=== PATIENT | female | born 1965 | race Caucasian/White ===

== ENCOUNTER 2016-10-16 11:19 | Emergency (ER) | payer OTHER ==
[~2016-10-16] VITALS: Ht 162.6 cm; Wt 79.0 kg
[~2016-10-16 11:19] MED LIST: LORA-441 PO; [UNRECOGNIZED DRUG - CODE] MC
[2016-10-16 11:47] VITALS: Ht 162.6 cm; Wt 79.0 kg
[2016-10-16 14:18] LABS: URINE BLOOD (Dip) POC 2+ (NEGATIVE)
[2016-10-16] MEDS ORDERED: FLUC150T41 PO (14:20)
[2016-10-16] MEDS ORDERED: CEPH-443 PO (14:20)
--- NOTE | 2016-10-16 14:24 | ERD ---
ER Documentation Chief Complaint Date/Time DATE: 10/16/16 TIME: 14:23 Chief Complaint PAINFUL URINATION,VAGINAL ITCHING HPI This 51-year-old female presents with dysuria for last week. She took some of her friends antibiotics by history and felt better but there symptoms have returned. She denies any fevers, vomiting, flank pain, abdominal pain. She also has some vaginal itching without discharge. ROS All systems reviewed and are negative except as per history of present illness. Medications Home Meds Active Scripts Fluconazole* (Fluconazole*) 150 Mg Tablet, 150 MG PO DAILY, #1 TAB Prov:AUNDREA VAUGHN MD 10/16/16 Cephalexin* (Keflex*) 500 Mg Capsule, 500 MG PO QID for 5 Days, CAP Prov:AUNDREA VAUGHN MD 10/16/16 Blood Sugar Diagnostic (ONE TOUCH VERIO) 1 Each Strip, 1 EACH MC DAILY, #30 STRIP Prov:BOYD HADLEY. GERIATRIC NURSE PRACTITIONER 05/31/15 Lorazepam* (Ativan*) 0.5 Mg Tablet, 0.5 MG PO Q8H Y for ANXIETY, #10 TAB Prov:BOYD HADLEY. GERIATRIC NURSE PRACTITIONER 05/31/15 Allergies Allergies: Coded Allergies: No Known Allergy (Unverified , 05/31/15) PMhx/Soc Medical and Surgical Hx: pt denies Surgical Hx History of Surgery: No Anesthesia Reaction: No Hx Neurological Disorder: No Hx Respiratory Disorders: No Hx Cardiac Disorders: No Hx Psychiatric Problems: No Hx Miscellaneous Medical Probl: Yes (DM, HTN, HIGH CHOLESTEROL) Hx Alcohol Use: No Hx Substance Use: No Hx Tobacco Use: No Smoking Status: Never smoker Physical Exam Vitals Vital Signs Date Time Temp Pulse Resp B/P Pulse Ox O2 Delivery O2 Flow Rate FiO2 10/16/16 11:47 97.5 98 18 165/94 98 Physical Exam Const: [] Alert, [id number]. Head: Atraumatic Eyes: Normal Conjunctiva ENT: Normal External Ears, Nose and Mouth. Neck: Full range of motion..~ No meningismus. Resp: Clear to auscultation bilaterally Cardio: Regular rate and rhythm, no murmurs Abd: Soft, non tender, non distended. Normal bowel sounds Skin: No petechiae or rashes Back: No midline or flank tenderness Ext: No cyanosis, or edema Neur: Awake and alert Psych: Normal Mood and Affect Results 24 hrs Laboratory Tests Test 10/16/16 14:17 Bedside Urine pH (LAB) 6.5 Bedside Urine Protein (LAB) Trace Bedside Urine Glucose (UA) Negative Bedside Urine Ketones (LAB) Negative Bedside Urine Blood 2+ Bedside Urine Nitrite (LAB) Positive Bedside Urine Leukocyte Esterase (L 1+ Current Medications Medications (Trade) Dose Ordered Sig/Michel Route PRN Reason Start Time Stop Time Status Last Admin Dose Admin Cephalexin (Keflex) 500 mg ONCE ONCE PO 10/16/16 14:30 10/16/16 14:31 Procedures/MDM Urine shows positive leukocytes, nitrites and hemoglobin. HCG is negative. Patient has signs and symptoms of cystitis without evidence of pyelonephritis, sepsis, signs of abdominal pain or acute abdomen. She may have vaginitis as well will be treated with Diflucan as well as Keflex given history of diabetes. Patient is advised to return for fevers, vomiting, new worsening symptoms with primary care doctor. The patient was stable with no new complaints during the ER course. Clinically, there is no current evidence to suggest meningitis, sepsis, acute abdomen, pneumonia, acute coronary syndrome, pulmonary embolism, or any other emergent condition appearing to require further evaluation or hospitalization. The patient should certainly return for any new or worsening symptoms per the aftercare instructions. They should otherwise follow-up with her primary care doctor for reevaluation this week. Departure Diagnosis: Primary Impression: Hypertension Hypertension type: essential hypertension Qualified Code: I10 - Essential hypertension Additional Impression: UTI (urinary tract infection) Urinary tract infection type: acute cystitis Hematuria presence: without hematuria Qualified Code: N30.00 - Acute cystitis without hematuria Condition: Stable Patient Instructions: Urinary Tract Infections in Women, High Blood Pressure ( Hypertension) Additional Instructions: Cheque otro vez con augustine doctor primario en el proximo camejo or regresa para mas o nueva simptomas. AUNDREA VAUGHN MD Oct 16, 2016 14:24
[2016-10-16] MEDS ORDERED: CEPHALEXIN 500 MG CAP PO ONE (14:30)
== END 2016-10-16 14:34 | disposition home or self-care (01) ==
LOC: FTE 11:19
DX: I10 Essential (primary) hypertension (principal); N30.00 Acute cystitis without hematuria; E11.9 Type 2 diabetes mellitus without complications
CPT/HCPCS: 81003; Z7502; Z7610; 99284

== ENCOUNTER 2016-12-27 10:08 | Emergency (ER) | payer OTHER ==
[~2016-12-27] VITALS: Ht 162.6 cm; Wt 81.5 kg
[~2016-12-27 10:08] MED LIST changes: +CEPH-443 PO; +FLUC150T41 PO
[2016-12-27 10:24] VITALS: Ht 162.6 cm; Wt 81.5 kg
[2016-12-27 11:54] LABS: ADD UMIC YES; URINE BILIRUBIN (Dip) NEGATIVE (NEGATIVE); URINE BLOOD (Dip) 3+ (NEGATIVE); URINE COLOR LT. YELLOW (YELLOW); URINE GLUCOSE (Dip) NEGATIVE (NEGATIVE); URINE KETONES (Dip) NEGATIVE (NEGATIVE); URINE LEUKOCYTE ESTERASE (Dip) 2+ (NEGATIVE); URINE NITRITE (Dip) POSITIVE (NEGATIVE); URINE TOTAL PROTEIN (Dip) NEGATIVE (NEGATIVE); URINE UROBILINOGEN (Dip) 0.2 E.U./dL (0.1-1.0)
[2016-12-27] MEDS ORDERED: PHEN-538 PO (12:23)
[2016-12-27] MEDS ORDERED: CEPH-443 PO (12:23)
--- NOTE | 2016-12-27 12:25 | ERD ---
ER Documentation Chief Complaint Date/Time DATE: 12/27/16 TIME: 12:24 Chief Complaint DYSURIA URGENCY FEELING HPI This 51-year-old female complains of dysuria for 1 day. She denies fevers, vomiting, shortness of the chest pain. She has a history of UTI last approximately 3 months ago and feels similar ROS All systems reviewed and are negative except as per history of present illness. Medications Home Meds Active Scripts Phenazopyridine Hcl* (Pyridium*) 200 Mg Tab, 200 MG PO TID Y for URINARY PAIN, # 6 TAB Prov:AUNDREA VAUGHN MD 12/27/16 Cephalexin* (Keflex*) 500 Mg Capsule, 500 MG PO QID for 5 Days, CAP Prov:AUNDREA VAUGHN MD 12/27/16 Fluconazole* (Fluconazole*) 150 Mg Tablet, 150 MG PO DAILY, #1 TAB Prov:AUNDREA VAUGHN MD 10/16/16 Cephalexin* (Keflex*) 500 Mg Capsule, 500 MG PO QID for 5 Days, CAP Prov:AUNDREA VAUGHN MD 10/16/16 Blood Sugar Diagnostic (ONE TOUCH VERIO) 1 Each Strip, 1 EACH MC DAILY, #30 STRIP Prov:BOYD HADLEY. GARDEN CENTER MANAGER 05/31/15 Lorazepam* (Ativan*) 0.5 Mg Tablet, 0.5 MG PO Q8H Y for ANXIETY, #10 TAB Prov:BOYD HADLEY. SABINO 05/31/15 Allergies Allergies: Coded Allergies: No Known Allergy (Unverified , 12/27/16) PMhx/Soc History of Surgery: No Anesthesia Reaction: No Hx Neurological Disorder: No Hx Respiratory Disorders: No Hx Cardiac Disorders: No Hx Psychiatric Problems: No Hx Miscellaneous Medical Probl: Yes (DM, HTN, HIGH CHOLESTEROL) Hx Alcohol Use: No Hx Substance Use: No Hx Tobacco Use: No Smoking Status: Never smoker Physical Exam Vitals Vital Signs Date Time Temp Pulse Resp B/P Pulse Ox O2 Delivery O2 Flow Rate FiO2 12/27/16 10:24 98.5 118 18 162/93 97 Physical Exam Const: [] Alert, [id number] Head: Atraumatic Eyes: Normal Conjunctiva ENT: Normal External Ears, Nose and Mouth. Neck: Full range of motion..~ No meningismus. Resp: Clear to auscultation bilaterally Cardio: Regular rate and rhythm, no murmurs Abd: Soft, non tender, non distended. Normal bowel sounds Skin: No petechiae or rashes Back: No midline or flank tenderness Ext: No cyanosis, or edema Neur: Awake and alert Psych: Normal Mood and Affect Results 24 hrs Laboratory Tests Test 12/27/16 11:35 Urine Color LT. YELLOW Urine Clarity CLEAR Urine pH 6.0 Urine Specific Marcell <=1.005 Urine Ketones NEGATIVE Urine Nitrite POSITIVE Urine Bilirubin NEGATIVE Urine Urobilinogen 0.2 E.U./dL Urine Leukocyte Esterase 2+ Urine Microscopic RBC 10-25/HPF Urine Microscopic WBC 25-50/HPF Urine Epithelial Cells FEW Urine Hemoglobin 3+ Urine Glucose NEGATIVE% Urine Total Protein NEGATIVE Current Medications Medications (Trade) Dose Ordered Sig/Michel Route PRN Reason Start Time Stop Time Status Last Admin Dose Admin Cephalexin (Keflex) 500 mg ONCE ONCE PO 12/27/16 12:30 12/27/16 12:31 12/27/16 12:19 Phenazopyridine HCl (Pyridium) 200 mg ONCE ONCE PO 12/27/16 12:30 12/27/16 12:31 12/27/16 12:19 Procedures/MDM And shows positive leukocytes and hemoglobin without glucose, nitrates. Patient was given Keflex and Pyridium here in the ED and will be treated with Keflex, Pyridium instructions for clear fluids at home. Patient should recheck fevers, vomiting, new worsening symptoms. The patient was stable with no new complaints during the ER course. Clinically, there is no current evidence to suggest meningitis, sepsis, acute abdomen, pneumonia, acute coronary syndrome, pulmonary embolism, or any other emergent condition appearing to require further evaluation or hospitalization. The patient should certainly return for any new or worsening symptoms per the aftercare instructions. They should otherwise follow-up with her primary care doctor for reevaluation this week. Departure Diagnosis: Primary Impression: Dysuria Condition: Stable Patient Instructions: Understanding Urinary Tract Infections (UTIs) Additional Instructions: Cheque otro vez con augustine doctor primario en el proximo camejo or regresa para mas o nueva simptomas. AUNDREA VAUGHN MD Dec 27, 2016 12:25
[2016-12-27 12:29] VITALS: BP 156/88; PULSE 69; RESP 18; TEMP 97.8
[2016-12-27] MEDS ORDERED: PHENAZOPYRIDINE 100 MG TAB PO ONE (12:30)
[2016-12-27] MEDS ORDERED: CEPHALEXIN 500 MG CAP PO ONE (12:30)
== END 2016-12-27 12:30 | disposition home or self-care (01) ==
LOC: FTE 10:08
DX: R30.0 Dysuria (principal); I10 Essential (primary) hypertension; E11.9 Type 2 diabetes mellitus without complications
CPT/HCPCS: 81001; Z7502; Z7610; 99283

== ENCOUNTER 2017-03-02 03:15 | Emergency (ER) | payer OTHER ==
[~2017-03-02] VITALS: Ht 165.1 cm; Wt 79.0 kg
[~2017-03-02 03:15] MED LIST changes: +PHEN-538 PO
[2017-03-02 03:20] VITALS: Ht 165.1 cm; Wt 79.0 kg
[2017-03-02] MEDS ORDERED: LORA-441 PO (03:42)
--- NOTE | 2017-03-02 03:59 | ERD ---
ER Documentation Chief Complaint Date/Time DATE: 03/02/17 TIME: 03:51 Chief Complaint anxiety, palpitations x 2 weeks d/t stress. Pt took Klonopin BIOLOGY DEPARTMENT CHAIR HPI 52-year-old female presents here in emergency department for complaints of being stressed and anxious, feeling palpitations for the last 2 weeks, patient states that she's been crying a lot, patient's states been going through a lot of stress lately, patient is a 0 anxiety, to Klonopin prior to coming here in emergency department, patient states that it has not been helping, patient was given lorazepam before and it does help before. Patient denies any chest pain. Patient denies any dizziness. Patient denies any dyspnea on exertion or dyspnea on lying down. Patient denies homicidal or suicidal ideations. ROS All systems reviewed and are negative except as per history of present illness. Medications Home Meds Active Scripts Lorazepam* (Ativan*) 0.5 Mg Tablet, 0.5 MG PO Q8H Y for ANXIETY, #10 TAB Prov:SWETA ARREDONDO NP 03/02/17 Phenazopyridine Hcl* (Pyridium*) 200 Mg Tab, 200 MG PO TID Y for URINARY PAIN, # 6 TAB Prov:AUNDREA VAUGHN MD 12/27/16 Cephalexin* (Keflex*) 500 Mg Capsule, 500 MG PO QID for 5 Days, CAP Prov:AUNDREA VAUGHN MD 12/27/16 Fluconazole* (Fluconazole*) 150 Mg Tablet, 150 MG PO DAILY, #1 TAB Prov:AUNDREA VAUGHN MD 10/16/16 Cephalexin* (Keflex*) 500 Mg Capsule, 500 MG PO QID for 5 Days, CAP Prov:AUNDREA VAUGHN MD 10/16/16 Blood Sugar Diagnostic (ONE TOUCH VERIO) 1 Each Strip, 1 EACH MC DAILY, #30 STRIP Prov:BOYD HADLEY NP 05/31/15 Allergies Allergies: Coded Allergies: No Known Allergy (Unverified , 03/02/17) PMhx/Soc Medical and Surgical Hx: pt denies Medical Hx, pt denies Surgical Hx History of Surgery: No Anesthesia Reaction: No Hx Neurological Disorder: No Hx Respiratory Disorders: No Hx Cardiac Disorders: No Hx Psychiatric Problems: No Hx Miscellaneous Medical Probl: Yes (DM, HTN, HIGH CHOLESTEROL) Hx Alcohol Use: No Hx Substance Use: No Hx Tobacco Use: No FmHx Family History: No coronary disease, No diabetes, No other Physical Exam Vitals Vital Signs Date Time Temp Pulse Resp B/P Pulse Ox O2 Delivery O2 Flow Rate FiO2 03/02/17 03:20 98.5 96 18 174/91 98 Physical Exam GENERAL: The patient is well developed and appropriate for usual state of health, in no apparent distress. CHEST: Clear to auscultation bilaterally. There are no rales, wheezes or rhonchi. HEART: Regular rate and rhythm. No murmurs, clicks, rubs or gallops. No S3 or S4. ABDOMEN: Soft, nontender and nondistended. Good bowel sounds. No rebound or guarding. No gross peritonitis. No gross organomegaly or masses. No Boss sign or McBurney point tenderness. BACK: No midline or flank tenderness. EXTREMITIES: Equal pulses bilaterally. There is no peripheral clubbing, cyanosis or edema. No focal swelling or erythema. Full range of motion. Grossly neurovascularly intact. NEURO: Alert and oriented. Cranial nerves 2-12 intact. Motor strength in all 4 extremities with 5/5 strength. Sensation grossly intact. Normal speech and gait. SKIN: There is no apparent rash or petechia. The skin is warm and dry. HEMATOLOGIC AND LYMPHATIC: There is no evidence of excessive bruising or lymphedema. No gross cervical, axillary, or inguinal lymphadenopathy. PSYCHIATRIC: Patient denies any homicidal or suicidal ideations, patient is teary eyed and crying. Results 24 hrs Current Medications Medications (Trade) Dose Ordered Sig/Michel Route PRN Reason Start Time Stop Time Status Last Admin Dose Admin Lorazepam (Ativan) 2 mg ONCE ONCE PO 03/02/17 04:00 03/02/17 04:01 03/02/17 03:46 Ativan was given here in emergency department, verbalized much better afterwards. Procedures/MDM Medical decision making: Patient's symptoms likely is consistent with an anxiety attack. No signs of any homicidal or suicidal ideations, no symptoms of any psychiatric emergencies at this time. Patient was given Ativan here in emergency department, was given a few pills of Ativan to go home with and was advised to psychiatric lpn for further evaluation of symptoms. Patient was advised to return to emergency department for any worsening symptoms. Disposition: Home. Stable. Departure Diagnosis: Primary Impression: Anxiety Condition: Stable Patient Instructions: Anxiety Reaction Referrals: RAYMOND PEÑA MD (PCP) SWETA ARREDONDO NP Mar 02, 2017 03:59
[2017-03-02] MEDS ORDERED: LORAZEPAM 1 MG TAB PO ONE (04:00)
== END 2017-03-02 04:15 | disposition home or self-care (01) ==
LOC: FTE 03:15
DX: F41.9 Anxiety disorder, unspecified (principal); E11.9 Type 2 diabetes mellitus without complications; I10 Essential (primary) hypertension
CPT/HCPCS: Z7502; Z7610; 99283

== ENCOUNTER → 2017-08-25 | Outpatient (CLI) | END | disposition home or self-care (01) ==

== ENCOUNTER 2017-11-11 04:28 | Emergency (ER) | END 2017-11-11 06:08 | disposition home or self-care (01) ==

== ENCOUNTER 2018-02-05 08:05 | Emergency (ER) | END 2018-02-05 10:25 | disposition home or self-care (01) ==

== ENCOUNTER 2018-02-24 00:14 | Emergency (ER) | END 2018-02-24 06:15 | disposition home or self-care (01) ==

== ENCOUNTER 2018-05-16 11:55 | Emergency (ER) | END 2018-05-16 12:51 | disposition home or self-care (01) ==